=== PATIENT | male | born 1985 | race Caucasian/White ===

== ENCOUNTER 2025-04-17 23:33 | Inpatient (IN) | payer OTHER ==
[2025-04-18 00:12] VITALS: BMI 23.2
[2025-04-18] MEDS ORDERED: guaiFENesin 600 MG TABLET.ER (FP) PO PRN (03:19)
[2025-04-18] MEDS ORDERED: IBUPROFEN 400 MG TABLET (FP) PO PRN (03:19)
[2025-04-18] MEDS ORDERED: BENZONATATE 200 MG CAPSULE PO PRN (03:19)
[2025-04-18] MEDS ORDERED: LOPERAMIDE HCL 2 MG CAPSULE PO PRN (03:19)
[2025-04-18] MEDS ORDERED: MAGNESIUM HYDROX 2400MG/30ML ORAL SUSPENSION 30 ML CUP PO PRN (03:19)
[2025-04-18] MEDS ORDERED: ACETAMINOPHEN 325 MG TABLET (FP) PO PRN (03:19)
[2025-04-18] MEDS ORDERED: POLYETHYLENE GLYCOL (HEALTHYLAX) 3350 17 GM PACKET PO PRN (03:19)
[2025-04-18] MEDS ORDERED: BISMUTH SUBSALICYLATE 524 MG/30 ML PO PRN (03:19)
[2025-04-18] MEDS ORDERED: NALOXONE (NARCAN) HCL 4 MG/0.1 ML SPRAY NS PRN (03:19)
[2025-04-18] MEDS ORDERED: DICYCLOMINE HCL 10 MG CAPSULE PO PRN (03:19)
[2025-04-18] MEDS ORDERED: BENZOCAINE/MENTHOL (CHLORASEPTIC ) LOZENGE MM PRN (03:19)
[2025-04-18] MEDS ORDERED: MAG HYDROX/AL HYDROX/SIMETH 30 ML UNIT-DOSE CUP PO PRN (03:19)
[2025-04-18] MEDS: PRENATAL VITAMINS W/ FOLIC ACID TABLET (FP) PO SCH (10:08)
[2025-04-18] MEDS: METHOCARBAMOL 500 MG TABLET PO PRN (17:28)
[2025-04-18] MEDS: hydrOXYzine PAMOATE 25 MG CAPSULE (FP) PO PRN (18:51)
[2025-04-18] MEDS: ONDANSETRON *ODT* 4 MG TABLET SL PRN (18:51)
[2025-04-18] MEDS: MELATONIN 5 MG TABLETS PO SCH (23:26)
[2025-04-18] MEDS: THIAMINE 100 MG TABLET PO SCH (23:26)
[2025-04-19 10:12] LABS: RDW 15.2 % (12.1-15.9)
[2025-04-19 10:14] LABS: MCHC 31.8 g/dl (32.3-36.5); MEAN CELL VOLUME 82.5 fl (79.0-92.2)
[2025-04-19 10:59] LABS: CO2 28.0 mmol/L (21-32)
[2025-04-19 11:00] LABS: GLUCOSE,RANDOM 115.0 mg/dL (74-106)
[2025-04-19 11:01] LABS: SGOT/AST 77.0 U/L (15-37); SGPT/ALT 145.0 U/L (13-61)
[2025-04-19 11:02] LABS: CREATININE 0.8 mg/dL (0.55-1.3)
[2025-04-19 11:03] LABS: TOT PROT 6.7 g/dl (6.4-8.2)
[2025-04-19 11:04] LABS: ALK PHOS 70.0 U/L (45-117)
[2025-04-20] MEDS: IBUPROFEN 600 MG TABLET (FP) PO PRN (08:35)
[2025-04-20] MEDS: LIDOCAINE 4% PATCH TP SCH (09:13)
[2025-04-20] MEDS: CLINDAMYCIN HCL 150 MG CAPSULE (FP) PO SCH (21:07)
[2025-04-20] MEDS: LIDOCAINE PATCH REMOVAL MC SCH (21:09)
[2025-04-21] MEDS: BACITRACIN 0.9 GM PACKET TP SCH (13:58)
[2025-04-21] MEDS: SUVOREXANT 10 MG TABLET PO PRN (22:02)
[2025-04-23 06:12] VITALS: RESP 16
[2025-04-23 08:54] VITALS: BP 97/60; PULSE 80; TEMP 98
== END 2025-04-23 10:46 | disposition home or self-care (01) | DRG 773 ==
LOC: YASAS 23:33 → Y6N 04-18 03:45
PROVIDERS: ADMIT Allergy & Immunology; ATTEND Allergy & Immunology
PROC: HZ2ZZZZ Detoxification Services for Substance Abuse Treatment (ICD-10-PCS; principal; 2025-04-18)
DX: F11.23 Opioid dependence with withdrawal (principal); F31.9 Bipolar disorder, unspecified; F43.10 Post-traumatic stress disorder, unspecified; F20.9 Schizophrenia, unspecified; J45.909 Unspecified asthma, uncomplicated
CPT/HCPCS: 36415; 80053; 80305; 80307; 85027; 86780; 93005; 93010; Q0162